=== PATIENT | female | born 1940 | race Caucasian/White ===

== ENCOUNTER → 2018-01-18 | Outpatient (CLI) | payer MEDICARE, OTHER | END | disposition home or self-care (01) | LOC: PCVCCLINIC 14:00 | DX: I10 Essential (primary) hypertension (principal); R06.02 Shortness of breath; E78.00 Pure hypercholesterolemia, unspecified; R53.83 Other fatigue; R00.2 Palpitations; E11.9 Type 2 diabetes mellitus without complications; I49.3 Ventricular premature depolarization; R09.89 Other specified symptoms and signs involving the circulatory and respiratory systems; Z79.4 Long term (current) use of insulin; Z87.891 Personal history of nicotine dependence; Z79.82 Long term (current) use of aspirin; Z79.899 Other long term (current) drug therapy | CPT/HCPCS: 80061; 93005; G0463 ==

== ENCOUNTER → 2018-02-01 | Outpatient (CLI) | payer MEDICARE, OTHER ==
--- NOTE | 2018-02-02 10:42 | PCVCIMAG ---
APPROVED REPORT Study performed: 02/01/2018 15:02:20 Exam: Stress Echocardiogram Indication: CAD , Dyspnea, Fatigue, Palpitations Patient Location: Echo lab Stress Nurse: Josefina Patel RN Room #: 2 Status: routine Ht: 5 ft 4 in HR: 59 bpm BP: 138/70 mmHg Rhythm: NSR Medical History Medical History: Diabetes, HTN, Hyperlipidemia, PVCs Cardiac Risk Factors: HTN, Hyperlipidemia, DM, FHX of CAD Pretest Chest Pain Characteristics: No chest pain Exercise History: Sedentary Procedure The patient underwent an Exercise Stress Test using the Ian Protocol. Blood pressure, heart rate, and EKG were monitored. An Echocardiogram was performed by windows deployment technician in four stages in quad fashion. At peak stress, four selected images were obtained and placed side by side with resting images for comparison. Stress Test Details Stress Test: Exercise stress testing was performed using a Ian protocol. HR Resting HR: 59 bpmMax Heart Rate (APMHR): 145 bpm Max HR Achieved: 127 bpmTarget HR (85% APMHR): 123 bpm % of APMHR: 87 Recovery HR: 75 bpm HR response to stress: Normal HR response to stress BP Resting BP: 138/70 mmHg Max BP: 188/78 mmHg Recovery BP: 180/70 mmHg ECG Resting ECG: Sinus Rhythm Stress ECG: Sinus Rhythm, nonspecific ST-T abnormalities ST Change: Non-ischemic Arrhythmia: PVCs -rate dependant Recovery ECG: Sinus Rhythm Recovery ST Change: Non-ischemic Recovery Arrhythmia: rare pvcs Clinical Reason for Termination: Maximal effort Stress Symptoms: none Exercise duration: 6 min sec Highest Stage Achieved: Stage 2: 2.5 mph at 12% grade. Exercise capacity: 7 METs Overall Exercise Capacity for Age: Poor Angina Score: None Stress ECG Conclusion The patient exercised according to the IAN protocol for 6:00 mins; achieving a work level of 7.0 METS. The resting heart rate of 59 bpm binta to a maximum heart rate of 127 bpm. This value represent 87% of the maximal, age-predicted heart rate. The resting blood pressure of 138/70 mmHg, binta to a maximum blood pressure of 188/78mmHg. The exercise test was stopped due to fatigue. Pre-Stress Echo The resting Echocardiogram showed normal left ventricular contractility with an estimated Ejection Fraction of about 55-60%. Normal wall motion in all segments on baseline images. Post-Stress Echo The stress Echocardiogram showed normal left ventricular contractility with an estimated Ejection Fraction of about 65-70%. Normal augmentation of wall motion in all segments on post stress images. Clinical No clinical or ECG evidence for ischemia. Conclusion Clinical Response: Non-ischemic Exercise Capacity: Below Average Stress ECG Response: Non-ischemic Stress Echo Images: Non-ischemic No clinical, EKG or echocardiographic evidence for ischemia. No echocardiographic evidence for exercise induced ischemia. Normal stress echocardiogram with maximal exercise stress. <Conclusion> No clinical, EKG or echocardiographic evidence for ischemia. No echocardiographic evidence for exercise induced ischemia. Normal stress echocardiogram with maximal exercise stress.
== END | disposition home or self-care (01) ==
LOC: PCVCIMAG 17:11
PROVIDERS: ATTEND Internal Medicine Cardiovascular Disease
DX: I10 Essential (primary) hypertension (principal); E11.9 Type 2 diabetes mellitus without complications; R06.02 Shortness of breath; R53.83 Other fatigue; E78.5 Hyperlipidemia, unspecified; I25.10 Atherosclerotic heart disease of native coronary artery without angina pectoris; R07.9 Chest pain, unspecified; I65.23 Occlusion and stenosis of bilateral carotid arteries
CPT/HCPCS: 93325; 93351; 93880

== ENCOUNTER → 2018-09-13 | Outpatient (CLI) | payer MEDICARE, OTHER | END | disposition home or self-care (01) | LOC: PCVCCLINIC 11:05 | PROVIDERS: ATTEND Internal Medicine Cardiovascular Disease | DX: I10 Essential (primary) hypertension (principal); E78.5 Hyperlipidemia, unspecified; E78.00 Pure hypercholesterolemia, unspecified; I65.23 Occlusion and stenosis of bilateral carotid arteries; E11.9 Type 2 diabetes mellitus without complications; R00.2 Palpitations; Z79.4 Long term (current) use of insulin; Z82.49 Family history of ischemic heart disease and other diseases of the circulatory system; Z87.891 Personal history of nicotine dependence; Z79.82 Long term (current) use of aspirin; Z79.84 Long term (current) use of oral hypoglycemic drugs; Z79.899 Other long term (current) drug therapy | CPT/HCPCS: 36415; 80061; 93005; G0463 ==